=== PATIENT | male | born 1985 | race American Indian/Alaskan Native ===

== ENCOUNTER 2017-05-17 20:34 | Emergency (ER) | payer SELFPAY ==
[2017-05-17 21:42] VITALS: BP 134/77
[2017-05-17] MEDS ORDERED: TYLENOL PO ONE (21:44)
--- NOTE | 2017-05-17 22:26 | XRay Report ---
FINAL REPORT EXAM: XR CHEST ROUTINE 2V HISTORY: cough TECHNIQUE: Two view chest PA and lateral PRIORS: None. FINDINGS: Cardiac and mediastinal contours are unremarkable. No focal pulmonary infiltrate is identified. No pleural fluid collection seen. Pulmonary vasculature is unremarkable. IMPRESSION: Negative two-view chest
--- NOTE | 2017-05-18 00:18 | Emergency Department Report ---
- General Chief Complaint: Upper Respiratory Infection Stated Complaint: COUGH HEAVY MUCUS PRODUCTION Source: patient Mode of arrival: Ambulatory Limitations: No Limitations - History of Present Illness Initial Comments: When he 11-year-old -[place] male comes in today for complaint of coughing up mucous, headache, fever, hot and cold flashes for the past month. Patient reports that his been off and on for the past month he also complains of a headache chest pain just with cough. She denies any sore throat denies any nausea no vomiting no abdominal pain. He's had a past medical history of tonsils removed and a history of asthma as a child. MD Complaint: fever, cough -: month(s) (1 off and on) Severity scale (0 -10): 7 Quality: sharp Consistency: intermittent Improves With: cough suppressant (has been trying Mucinex Tessy-[place] plus emergency and Benadryl) Worsens With: nothing Associated Symptoms: fever, chills, myalgias, cough, chest pain (coughing) Treatments Prior to Arrival: Ibuprofen, "cold medicine" - Related Data Previous Rx's Medication Instructions Recorded Last Taken Type Benzonatate [Tessalon Perle] 100 mg PO TID PRN #30 capsule 05/18/17 Unknown Rx Naproxen 500 mg PO BID PRN #10 tablet 05/18/17 Unknown Rx Allergies Allergy/AdvReac Type Severity Reaction Status Date / Time No Known Allergies Allergy Unverified 05/17/17 21:42 ED Review of Systems ROS: Stated complaint: COUGH HEAVY MUCUS PRODUCTION Other details as noted in HPI Constitutional: chills, fever, malaise Eyes: denies: eye pain, eye discharge, vision change ENT: denies: ear pain, throat pain Respiratory: cough Cardiovascular: chest pain (chest pain with cough). denies: palpitations Endocrine: no symptoms reported Gastrointestinal: denies: abdominal pain, nausea, diarrhea Genitourinary: denies: urgency, dysuria Musculoskeletal: denies: back pain, joint swelling, arthralgia Skin: denies: rash, lesions Neurological: headache Psychiatric: denies: anxiety, depression Hematological/Lymphatic: denies: easy bleeding, easy bruising ED Past Medical Hx - Past Medical History Hx Asthma: Yes - Surgical History Additional Surgical History: Tonsil removed - Social History Smoking Status: Former Smoker Substance Use Type: None - Medications Home Medications: Home Medications Medication Instructions Recorded Confirmed Last Taken Type Benzonatate [Tessalon Perle] 100 mg PO TID PRN #30 capsule 05/18/17 Unknown Rx Naproxen 500 mg PO BID PRN #10 tablet 05/18/17 Unknown Rx ED Physical Exam - General Limitations: No Limitations General appearance: alert, in no apparent distress - Head Head exam: Present: atraumatic, normocephalic - Eye Eye exam: Present: normal appearance - ENT ENT exam: Present: mucous membranes moist - Expanded ENT Exam Expanded TM/Canal exam: Cerumen Impaction: Right TM, Left TM Teeth exam: Present: normal inspection Throat exam: Positive: normal inspection - Neck Neck exam: Present: normal inspection - Respiratory Respiratory exam: Present: normal lung sounds bilaterally. Absent: respiratory distress - Cardiovascular Cardiovascular Exam: Present: regular rate, normal rhythm. Absent: systolic murmur, diastolic murmur, rubs, gallop - GI/Abdominal GI/Abdominal exam: Present: soft, normal bowel sounds - Rectal Rectal exam: Present: deferred - Extremities Exam Extremities exam: Present: normal inspection - Back Exam Back exam: Present: normal inspection - Neurological Exam Neurological exam: Present: alert, oriented X3 - Skin Skin exam: Present: warm, dry, intact, normal color. Absent: rash ED Course Vital Signs 05/17/17 21:36 Temperature 100.0 F H Pulse Rate 105 H Blood Pressure 134/77 O2 Sat by Pulse 95 Oximetry ED Medical Decision Making - Radiology Data Radiology results: report reviewed Negative chest x-ray - Medical Decision Making Patient has been evaluated by this provider fast track. I discussed with patient that his chest x-ray was negative. That his fever has resolved it was 98.4 when I examined him. Discussed the patient that he should get HIV test since the last one spent 2 years ago and that he is having off and on fever. Also discussed the patient that I will give him something for his cough. He is to continue ibuprofen or Tylenol for fever control. I discussed the patient I will refer him to [facility] for further evaluation. Patient verbalized understanding. Critical care attestation.: If time is entered above; I have spent that time in minutes in the direct care of this critically ill patient, excluding procedure time. ED Disposition Clinical Impression: URI, acute Disposition: DC-01 TO HOME OR SELFCARE Is pt being admited?: No Does the pt Need Aspirin: No Condition: Stable Instructions: Upper Respiratory Infection (ED) Additional Instructions: Please take medication as prescribed. Please drink plenty of fluids and follow- up with [facility] for further evaluation. Prescriptions: Benzonatate [Tessalon Perle] 100 mg PO TID PRN #30 capsule PRN Reason: Cough Naproxen 500 mg PO BID PRN #10 tablet PRN Reason: Fever Referrals: VICTOR HUGO KILPATRICK MD [Primary Care Provider] - 3-5 Days [facility] [Provider Group] - 3-5 Days Forms: Accompanied Note, Work/School Release Form(ED)
== END 2017-05-18 00:29 | disposition home or self-care (01) ==
LOC: ED 20:34
DX: J06.9 Acute upper respiratory infection, unspecified (principal); Z87.891 Personal history of nicotine dependence
CPT/HCPCS: 71046; 99283